=== PATIENT | female | born 1945 | race Caucasian/White ===

== ENCOUNTER 2018-12-11 10:29 | Outpatient (CLI) | payer MEDICARE ==
--- NOTE | 2018-12-11 17:59 | ULT ---
THYROID ULTRASOUND: 12/11/18 Ultrasonography of the thyroid gland was performed for evaluation of tracheal deviation. Documentary images and worksheets were provided and reviewed. The right lobe measures 3.5 x 1.1 x 1.3 cm and the left lobe measures 3.7 x 1.1 x 1.2 cm. Both of the se are normal sizes. Internally, I see no masses or cysts. The echotexture is a little inhomogeneous throughout the gland, more so in the left lobe, but no true focal finding was seen. There is no enlar gement of any lobe. IMPRESSION: Unremarkable thyroid ultrasound. POS: HOME
== END 2018-12-11 10:30 | disposition home or self-care (01) ==
LOC: BURULT 10:29
PROVIDERS: ATTEND Family Medicine
DX: E01.0 Iodine-deficiency related diffuse (endemic) goiter (principal); J39.8 Other specified diseases of upper respiratory tract
CPT/HCPCS: 76536